=== PATIENT | male | born 1990 | race Caucasian/White ===

== ENCOUNTER 2019-05-30 06:37 | Inpatient (IN) ==
[2019-05-30] MEDS ORDERED: NS 1,000 ML IV ONE (07:09)
[2019-05-30] MEDS ORDERED: NARCAN IV ONE ×2 (07:09→08:37)
--- NOTE | 2019-05-30 07:38 | Diag Imaging Result Doc PS360 ---
EXAM: CHEST-PORTABLE 05/30/2019 HISTORY: ams TECHNIQUE: AP portable upright at 0729 COMMENT: There is no evidence of acute cardiac or pulmonary disease. No previous studies are available for comparison. IMPRESSION: No acute disease. Electronically signed by Kyle Fields 05/30/2019 7:36 AM
[2019-05-30 07:44] LABS: ALLEN TEST NO; BE 1.9 mmoll (-3.0-3.0); BLOOD TYPE ARTERIAL; HCO3-(ACT) 26.3 mmoll (20.0-26.0); METHB 0.9 % (0.0-1.5); MODALITY CANNULA; O2(CT) 22.6 mL/dL (15.0-23.0); O2HB 95.8 % (95.0-99.0); PCO2(98.6) 37 mmHg (35-45); PO2(98.6) 145 mmHg (60-100); SAMPLE BLOOD; SAO2 98.5 % (95.0-100.0); THB 16.6 g/dL (11.5-17.4); pH(98.6) 7.45 (7.35-7.45)
[2019-05-30 08:05] LABS: URINE SOURCE CATH
[2019-05-30 08:15] LABS: BASO# 0.03 X1000 (0.0-0.2); BASO% 0.3 % (0.0-0.8); EOS# 0.14 X1000 (0.0-0.7); EOS% 1.2 % (0.0-10.0); HEMOGLOBIN 15.6 g/dL (14.0-18.0); IMM GRAN# 0.03 X1000 (0.0-0.04); IMM GRAN% 0.3 % (0.0-0.5); LYMPH# 3.08 X1000 (1.2-3.4); MCH 28.5 PG (27-31); MCHC 33.2 g/dL (33-37); MCV 85.9 FL (81-99); MONO# 0.96 X1000 (0.11-0.59); MONO% 8.4 % (1.7-9.3); MPV 9.9 FL (7.4-10.4); NEUT# 7.15 X1000 (1.4-6.5); NEUT% 62.8 % (42.2-75.2); PLT 278 X1000 (130-400); RBC 5.47 XMIL (4.7-6.1); RDW 12.7 % (11.5-14.5); WBC 11.39 X1000 (4.8-10.8)
[2019-05-30 08:17] LABS: BILIRUBIN URINE NEGATIVE (NEGATIVE); BLOOD URINE NEGATIVE (NEGATIVE); COLOR YELLOW; GLUCOSE URINE NEGATIVE (NEGATIVE); KETONE URINE NEGATIVE (NEGATIVE); LEUKOCYTES URINE NEGATIVE (NEGATIVE); NITRITE URINE NEGATIVE (NEGATIVE); PH URINE 6.5; PROTEIN URINE 30 mg/dL (NEGATIVE); TURBIDITY URINE HAZY (CLEAR); UROBILINOGEN URINE 2 mg/dL (NORMAL)
--- NOTE | 2019-05-30 08:17 | Diag Imaging Result Doc PS360 ---
EXAM: CT HEAD W/O CONTRAST 05/30/2019 HISTORY: ams TECHNIQUE: This exam was performed using automated exposure control, adjustment of mA or kV according to patient size, and/or use of iterative reconstruction technique. COMMENT: There is no evidence of mass effect, bleed, or abnormal extra-axial fluid collection. The calvarium is intact. The paranasal sinuses are clear. IMPRESSION: No evidence of acute disease. Electronically signed by Kyle Fields 05/30/2019 8:15 AM
[2019-05-30 08:34] LABS: ACETAMINOPHEN < 1.2 ug/mL (10-30); AGAP 6; ALB/GLOB RATIO 1.3; ALBUMIN 4.4 g/dL (3.5-5.0); ALKALINE PHOSPHATASE 79 U/L (32-122); BUN 13 mg/dL (8-22); CALCIUM 10.2 mg/dL (8.8-10.2); CHLORIDE 98 mmol/L (98-107); COSMO 265; ESTIMATED GFR > 60; GLUCOSE 108 mg/dL (70-104); GOT 31 U/L (10-34); GPT 42 U/L (10-44); MAGNESIUM 1.9 mg/dL (1.5-2.7); POTASSIUM 4.5 mmol/L (3.5-5.1); SODIUM 132 mmol/L (136-145); TCO2 28 mmol/L (25-35); TOTAL BILIRUBIN 0.52 mg/dL (0.20-1.00); TOTAL PROTEIN 7.9 g/dL (6.3-8.3)
[2019-05-30 08:35] LABS: UR EPITHELIAL CELLS <10 /HPF (<10); URINE BACTERIA NEGATIVE /HPF; URINE WBC <10 /HPF (<10)
[2019-05-30 08:36] LABS: URINE CRYSTALS NONE SEEN
--- NOTE | 2019-05-30 08:51 | EKG Report ---
Test Performed on : 05/30/2019 08:41:49 AM Test Reason : DOD Blood Pressure : / mmHG Vent. Rate : 066 BPM Atrial Rate : 066 BPM P-R Int : 146 ms QRS Dur : 092 ms QT Int : 392 ms P-R-T Axes : 030 072 063 degrees QTc Int : 410 ms Normal sinus rhythm. Early repolarization Normal ECG No previous ECGs available Unconfirmed Result
[2019-05-30 09:00] LABS: UR AMPHETAMINES QUAL PRESUMPTIVE POSITIVE (NONE DETECT); UR BARBITUATES QUAL NONE DETECTED (NONE DETECT); UR BENZODIAZEPIN QUAL PRESUMPTIVE POSITIVE (NONE DETECT); UR CANNABINOIDS QUAL NONE DETECTED (NONE DETECT); UR COCAINE QUAL NONE DETECTED (NONE DETECT); UR METHADONE QUAL NONE DETECTED (NONE DETECT); UR OPIATES QUAL NONE DETECTED (NONE DETECT); UR OXYCODONE QUAL NONE DETECTED (NONE DETECT); UR PCP QUAL NONE DETECTED (NONE DETECT)
--- NOTE | 2019-05-30 10:20 | PROVIDER DOCUMENTATION ---
This chart was entered by Heber Nelson Scribe, acting as scribe for Laurent Vieyra MD. [id number] Abuse/Overdose - General Chief Complaint: Overdose Stated Complaint: "PASSED OUT" POLICE BROUGHT HIM Time Seen by Provider: 05/30/19 07:01 Source: patient Unable to obtain history due to:: other (Patient is nonverbal and mumbles incoherently) Allergies/Adverse Reactions: Allergies Allergy/AdvReac Type Severity Reaction Status Date / Time No Known Allergies Allergy Verified 09/26/18 06:39 - History of Present Illness-Drug/Alcohol Nature of Presenting Problem: 29 y/o M presents to the ED via EMS in police custody [place] out [place] with a needle and syringe in his hand. Patient is nonverbal and mumbles incoherently. Patient appears to be drowsy and agitated at times. Unable to obtain full history due to patient current state. This episode of drinking or use began:: just prior to arrival Severity: reports: moderate Review of Systems - Adult - REVIEW OF SYSTEMS - ADULT ROS:: unobtainable per condition (nonverbal, mumbles incoherently) Constitutional: reports: see HPI Past History - Adult - PAST MEDICAL HISTORY-ADULT Review of Records: reports: Nursing Assessment Review, Medications Reviewed Major Childhood Illnesses: reports: denies history Cardiovascular: reports: denies history Respiratory: reports: denies history Gastrointestinal: reports: denies history Obstetrical/Gynecological: reports: denies history Genitourinary: reports: denies history Musculoskeletal: reports: denies history Neurological: reports: denies history Endocrine/Immune: reports: denies history Other Conditions: reports: denies history - IMMUNIZATION STATUS Childhood Immunizations: See Nurse Assessment Flu Vaccine: See Nurse Assessment - FAMILY HISTORY Family History: reviewed, not pertinent Physical Exam-General - PHYSICAL EXAM-ADULT Initial Vital Signs Reviewed: Yes - CONSTITUTIONAL General Appearance: other (somnolent verses agitated) - EYES Eyes: other (wouldn't open eyes) - HEAD, EARS, NOSE, MOUTH & THROAT HENMT: normocephalic/atraumatic, moist mucous membranes - NECK Neck: full range of motion, normal inspection - RESPIRATORY Respiratory: lungs clear, normal breath sounds, no respiratory distress, no accessory muscle use - CARDIOVASCULAR Cardiovascular: no gallop, no murmur, tachycardia - GASTROINTESTINAL (ABDOMEN) Abdominal Exam: non tender, soft - MUSCULOSKELETAL Back Exam: normal inspection Extremity: non-tender, normal capillary refill DTR: bicep (R): 2+, bicep (L): 2+, knee (R): 2+, knee (L): 2+ - SKIN Integumentary: normal color, normal turgor, other (cool to the touch) - NEUROLOGIC Neurologic: machine molder squeeze II-XII nml as tested, grossly normal, other (nonfocal with normal reflexes; withdraws to pain) - PSYCHIATRIC Psych/Mental Status: other (somnolent at times, alternating with agitation at times.) Progress - PLAN OF CARE/RESULTS Progress/Plan/Lab Results: Vital Signs - 8 hr 05/30/19 06:38 05/30/19 06:54 05/30/19 06:56 Temperature 97.7 F 94.7 F L Pulse Rate 168 H 75 75 Respiratory Rate 12 9 L 17 Blood Pressure 99/61 103/68 O2 Sat by Pulse Oximetry 89 L 96 96 05/30/19 06:59 05/30/19 07:00 05/30/19 07:14 Temperature Pulse Rate 76 73 73 Respiratory Rate 15 17 30 H Blood Pressure 95/68 100/73 O2 Sat by Pulse Oximetry 99 97 05/30/19 07:15 05/30/19 07:30 05/30/19 07:45 Temperature Pulse Rate 101 H 78 68 Respiratory Rate 15 17 15 Blood Pressure O2 Sat by Pulse Oximetry 100 99 100 05/30/19 07:51 05/30/19 08:11 05/30/19 08:15 Temperature Pulse Rate 73 65 69 Respiratory Rate 16 18 15 Blood Pressure 101/66 O2 Sat by Pulse Oximetry 100 100 100 Laboratory Results - last 24 hr 05/30/19 05/30/19 05/30/19 07:35 07:45 07:45 WBC RBC Hgb Hct MCV MCH MCHC RDW Std Deviation Plt Count MPV Immature Gran % (Auto) Neut % (Auto) Lymph % (Auto) Gray % (Auto) Eos % (Auto) Baso % (Auto) Immature Gran # (Auto) Neut # (Auto) Lymph # (Auto) Gray # (Auto) Eos # (Auto) Baso # (Auto) Specimen Type ARTERIAL Sample Site R BRACHIAL pH 7.45 pCO2 37 pO2 145 H HCO3 26.3 H Base Excess 1.9 Oxyhemoglobin 95.8 ABG O2 Sat (Calculated) 22.6 ABG O2 Saturation 98.5 ABG Carboxyhemoglobin 1.80 ABG Methemoglobin 0.9 Vinicio Test NO A-a O2 Difference 8.0 Total Hemoglobin 16.6 Lactate 0.60 Liter Flow 2.0 Blood Gas Modality CANNULA FiO2 % 28.0 Sodium Potassium Chloride Carbon Dioxide Anion Gap BUN Creatinine Estimated GFR/1.73 m2 BUN/Creatinine Ratio Glucose POC Glucose Calculated Osmolality Calcium Magnesium Total Bilirubin AST ALT Alkaline Phosphatase Troponin T < 0.010 Total Protein Albumin Globulin Albumin/Globulin Ratio Plasma Lactate Urine Source Urine Color Urine Turbidity Urine pH Ur Specific [place] Urine Protein Ur Glucose (Stick) Ur Ketones (Stick) Urine Blood Urine Nitrite Urine Bilirubin Urobilinogen Dipstick Urine Leukocytes Urine WBC (Auto) Urine RBC (Auto) U Epithel Cells (Auto) Urine Bacteria (Auto) Urine Crystals Small Round Cells Urine Casts Urine Yeast-like Cells Urine Opiates Screen Ur Oxycodone Screen Ur Methadone, Qual Acetaminophen Ur Barbiturates Screen Ur Phencyclidine Scrn Ur Amphetamines Screen U Benzodiazepines Scrn Urine Cocaine Screen U Cannabinoids Screen Plasma/Serum Ethyl Alc 05/30/19 05/30/19 05/30/19 07:45 07:45 07:50 WBC 11.39 H RBC 5.47 Hgb 15.6 Hct 47.0 MCV 85.9 MCH 28.5 MCHC 33.2 RDW Std Deviation 12.7 Plt Count 278 MPV 9.9 Immature Gran % (Auto) 0.3 Neut % (Auto) 62.8 Lymph % (Auto) 27.0 Gray % (Auto) 8.4 Eos % (Auto) 1.2 Baso % (Auto) 0.3 Immature Gran # (Auto) 0.03 Neut # (Auto) 7.15 H Lymph # (Auto) 3.08 Gray # (Auto) 0.96 H Eos # (Auto) 0.14 Baso # (Auto) 0.03 Specimen Type Sample Site pH pCO2 pO2 HCO3 Base Excess Oxyhemoglobin ABG O2 Sat (Calculated) ABG O2 Saturation ABG Carboxyhemoglobin ABG Methemoglobin Vinicio Test A-a O2 Difference Total Hemoglobin Lactate Liter Flow Blood Gas Modality FiO2 % Sodium 132 L Potassium 4.5 Chloride 98 Carbon Dioxide 28 Anion Gap 6 BUN 13 Creatinine 1.0 Estimated GFR/1.73 m2 > 60 BUN/Creatinine Ratio 13 Glucose 108 H POC Glucose Calculated Osmolality 265 Calcium 10.2 Magnesium 1.9 Total Bilirubin 0.52 AST 31 ALT 42 Alkaline Phosphatase 79 Troponin T Total Protein 7.9 Albumin 4.4 Globulin 3.5 Albumin/Globulin Ratio 1.3 Plasma Lactate Urine Source CATH Urine Color YELLOW Urine Turbidity HAZY Urine pH 6.5 Ur Specific [place] 1.030 Urine Protein 30 A Ur Glucose (Stick) NEGATIVE Ur Ketones (Stick) NEGATIVE Urine Blood NEGATIVE Urine Nitrite NEGATIVE Urine Bilirubin NEGATIVE Urobilinogen Dipstick 2 A Urine Leukocytes NEGATIVE Urine WBC (Auto) <10 Urine RBC (Auto) 10-20 A U Epithel Cells (Auto) <10 Urine Bacteria (Auto) NEGATIVE Urine Crystals NONE SEEN Small Round Cells Not Reportable Urine Casts Not Reportable Urine Yeast-like Cells Not Reportable Urine Opiates Screen Ur Oxycodone Screen Ur Methadone, Qual Acetaminophen < 1.2 L Ur Barbiturates Screen Ur Phencyclidine Scrn Ur Amphetamines Screen U Benzodiazepines Scrn Urine Cocaine Screen U Cannabinoids Screen Plasma/Serum Ethyl Alc 05/30/19 05/30/19 05/30/19 08:30 08:52 09:15 WBC RBC Hgb Hct MCV MCH MCHC RDW Std Deviation Plt Count MPV Immature Gran % (Auto) Neut % (Auto) Lymph % (Auto) Gray % (Auto) Eos % (Auto) Baso % (Auto) Immature Gran # (Auto) Neut # (Auto) Lymph # (Auto) Gray # (Auto) Eos # (Auto) Baso # (Auto) Specimen Type Sample Site pH pCO2 pO2 HCO3 Base Excess Oxyhemoglobin ABG O2 Sat (Calculated) ABG O2 Saturation ABG Carboxyhemoglobin ABG Methemoglobin Vinicio Test A-a O2 Difference Total Hemoglobin Lactate Liter Flow Blood Gas Modality FiO2 % Sodium Potassium Chloride Carbon Dioxide Anion Gap BUN Creatinine Estimated GFR/1.73 m2 BUN/Creatinine Ratio Glucose POC Glucose 96 Calculated Osmolality Calcium Magnesium Total Bilirubin AST ALT Alkaline Phosphatase Troponin T Total Protein Albumin Globulin Albumin/Globulin Ratio Plasma Lactate 0.7 Urine Source Urine Color Urine Turbidity Urine pH Ur Specific [place] Urine Protein Ur Glucose (Stick) Ur Ketones (Stick) Urine Blood Urine Nitrite Urine Bilirubin Urobilinogen Dipstick Urine Leukocytes Urine WBC (Auto) Urine RBC (Auto) U Epithel Cells (Auto) Urine Bacteria (Auto) Urine Crystals Small Round Cells Urine Casts Urine Yeast-like Cells Urine Opiates Screen NONE DETECTED Ur Oxycodone Screen NONE DETECTED Ur Methadone, Qual NONE DETECTED Acetaminophen Ur Barbiturates Screen NONE DETECTED Ur Phencyclidine Scrn NONE DETECTED Ur Amphetamines Screen PRESUMPTIVE POSITIVE A U Benzodiazepines Scrn PRESUMPTIVE POSITIVE A Urine Cocaine Screen NONE DETECTED U Cannabinoids Screen NONE DETECTED Plasma/Serum Ethyl Alc Orders Category Date Time Status Cardiac Monitoring DIRECTED Care 05/30/19 06:54 Active Finger Stick Blood Sugar (ED) DIRECTED Care 05/30/19 07:11 Active Flor Cath Insertion ORDERED Care 05/30/19 08:16 Active Saline Loc NOW Care 05/30/19 06:54 Active CHEST-PORTABLE [RAD] Stat Exams 05/30/19 07:[address] HEAD W/O CONTRAST [CT] Stat Exams 05/30/19 07:10 Completed ABG [RESP] Routine Lab 05/30/19 07:35 Completed ACETAMINOPHEN [TDM] Stat Lab 05/30/19 07:45 Completed ALCOHOL BLOOD Stat Lab 05/30/19 07:45 Completed BLOOD CULTURE [BLDCUL] Stat Lab 05/30/19 09:15 Ordered CBC WITH ELECTRONIC DIFF [HEME] Stat Lab 05/30/19 07:45 Completed COMPREHENSIVE METABOLIC PANEL [CHEM] Stat Lab 05/30/19 07:45 Completed LACTATE, PLASMA [CHEM] Stat Lab 05/30/19 09:15 Completed MAGNESIUM [CHEM] Stat Lab 05/30/19 07:45 Completed TROPONIN T Stat Lab 05/30/19 07:45 Completed URINALYSIS W/POSS RFLX CULT [URINALYSIS] Stat Lab 05/30/19 07:50 Completed URINE DRUG SCREEN Stat Lab 05/30/19 08:30 Completed URINE MANUAL MICROSCOPIC [URINALYSIS] Stat Lab 05/30/19 07:50 Completed 0.9% Sodium Chloride Inj [Ns] 1,000 ml Med 05/30/19 07:09 Discontinued IV 999 mls/hr Naloxone [Narcan] Med 05/30/19 07:09 Discontinued 0.4 mg IV NOW ONE Naloxone [Narcan] Med 05/30/19 08:37 Discontinued 2 mg IV NOW ONE EKG [EKG] Stat Ther 05/30/19 06:55 Draft Result Diagrams: 05/30/19 07:45 05/30/19 07:45 - REASSESSMENT Reassessment #1 Time Reassessed: 10:17 Status: improving (Place on Navid Hugger for hypothermia. Given Narcan IV x 2, placed on oxygen. Given also IVF bolus. Patient still somnolent) - EKG 1 Time of EKG reading by physician:: 10:14 EKG Read and Signed by:: Laurent Vieyra EKG Interpretation (*Must complete 3 of following elements*): Normal Rate: 66 Rhythm: normal sinus rhythm [place]: normal ST Wave: normal Comments: early repolarization - XRAY 1 XRAY Study: Chest Impression: See EMR Report (EXAM: CHEST-PORTABLE 05/30/2019 HISTORY: ams TECHNIQUE: AP portable upright at 0729 COMMENT: There is no evidence of acute cardiac or pulmonary disease. No previous studies are available for comparison. IMPRESSION: No acute disease. Electronically signed by Kyle Fields 1 07/30/2018 7:36 AM 05/30/19 0736 Interpreting Physician: Kyle Fields MD Dictated Date/Time: 05/30/19 0735 cc: Laurent Vieyra MD; None,PCP) - CT/MRI 1 CT Study: Head Impression: See EMR Report (EXAM: CT HEAD W/O CONTRAST 05/30/2019 HISTORY: ams TECHNIQUE: This exam was performed using automated exposure control, adjustment of mA or kV according to patient size, and/or use of iterative reconstruction technique. COMMENT: There is no evidence of mass effect, bleed, or abnormal extra-axial fluid collection. The calvarium is intact. The paranasal sinuses are clear. IMPRESSION: No evidence of acute disease. Electronically signed by Kyle Fields 05/30/2019 8:15 AM 05/30/19 0815 Interpreting Physician: Kyle Fields MD Dictated Date/Time: 05/30/19 0810 cc: Laurent Vieyra MD; None,PCP) - CONSULTS/PCP/HOSPITALIST Notification #1 *Consult/PCP/Hospitalist*: Hospitalist Time Discussed: 10:13 (Admit to [facility]) Consult Disposition: Admit Departure - Departure Date of Disposition Decision: 05/30/19 Time of Disposition Decision: 10:14 DIAGNOSIS: Methamphetamine abuse, Altered mental status associated with intoxication Overdose Qualifiers: Encounter type: initial encounter Injury intent: undetermined intent Qualified Code(s): T50.904A - Poisoning by unspecified drugs, medicaments and biological substances, undetermined, initial encounter Benzodiazepine (tranquilizer) overdose Qualifiers: Encounter type: initial encounter Injury intent: undetermined intent Qualified Code(s): T42.4X4A - Poisoning by benzodiazepines, undetermined, initial encounter Hypothermia Qualifiers: Encounter type: initial encounter Qualified Code(s): T68.XXXA - Hypothermia, initial encounter Disposition: ADMITTED INPATIENT 09 Certified Medical Emergency: Emergent Condition: Fair Referrals and Follow-Ups: None,PCP [Primary Care Provider] - - Critical Care Note This patient required my direct & personal management of CC.: Yes Total Time (mins): 35 Critical Care Statement: This patient required my direct personal management to treat or rule out processes, the absence of which, could potentiallly result in sudden, clinically significant life or limb threatening deterioration. Attestation - Physician/ CHERIE Attestation Patient care was provided by Advanced Practice Provider:: No The physician spent face to face time with patient:: Yes Advanced Practice Provider documentation review:: Supervising physician onsite and consulted in the evaluation and care of this patient. The physician did have a face to face encounter with the patient. This chart was documented by the indicated scribe, (Heber Nelson Scribe) and accurately reflects the services I performed and decisions made by me, Laurent Vieyra MD, as attested by the provider's signature.
[2019-05-30] MEDS ORDERED: TYLENOL PO PRN (10:47)
[2019-05-30] MEDS ORDERED: ZOFRAN IV PRN (10:47)
[2019-05-30] MEDS: NS 1,000 ML IV SCH ×2 (11:50→21:25)
--- NOTE | 2019-05-30 14:17 | HISTORY AND PHYSICAL ---
PRIMARY CARE PROVIDER: No one. CHIEF COMPLAINT: Was found unresponsive outside with a loaded IV drug needle and syringe. HISTORY OF PRESENT ILLNESS: Mr. Cody Perez is a 29-year-old, male with an unknown medical history as he is not responsive enough to give a history. He was found by police and was taken back to police custody as he [place] passed out [place] the post office with a needle and loaded syringe in his hand. He is essentially nonverbal. He mumbles incoherently. We are just unable to get any kind of information from him. He was cold with a temperature of 94 degrees, has been placed on a Navid Hugger warming blanket. Laboratory data reveals a white count of 11,000. Normal lactate. No obvious signs of infection. His alcohol level is 0 but he is positive for amphetamines and benzodiazepines in the blood. Head CT negative. Chest x-ray negative. EKG normal. He is going to be transferred to the ICU for monitoring and allow him to wake up. PAST MEDICAL HISTORY: Unable to obtain. PAST SURGICAL HISTORY: Unable to obtain. SOCIAL HISTORY: Unable to obtain. FAMILY HISTORY: Unable to obtain. ALLERGIES: No known drug allergies. HOME MEDICATIONS: None. REVIEW OF SYSTEMS: Unable to obtain. PHYSICAL EXAMINATION: VITAL SIGNS: Temperature 94.6 degrees, heart rate 82, respiratory rate 14, blood pressure 99/61, O2 saturation 99% on room air. GENERAL: Mr. Cody Perez is a 29-year-old, male. He is currently sedated from self- medicating with benzodiazepines and amphetamines. HEENT: Atraumatic, normocephalic. Pupils are equal and reactive, about 3 mm on both sides. Mucous membranes are dry. NECK: Trachea midline. CARDIOVASCULAR: S1, S2. Regular rate and rhythm. No rubs, gallops, murmurs. No lower extremity edema. There are +2 dorsalis and radial pulses. Negative JVD or carotid bruits. PULMONARY: Clear to auscultate bilateral breath sounds. No accessory muscle use or work of breathing noted. GI: Soft, nontender, nondistended. Positive bowel sounds x4. EXTREMITIES: He moves all extremities spontaneously but not to command. Unable to assess for strength or range of motion. NEUROLOGIC: He is obtunded. He does not wake up enough to follow any commands. He keeps his eyes closed and has spontaneous movements in the bed. SKIN: Warm, dry, intact. LABORATORY DATA: White blood cells 11,000, hemoglobin 15, hematocrit 47, platelet count 278,000. ABGs on room air, pH of 7.45, pCO2 of 37, PO2 of 145, bicarb 26, base excess 1.9, saturation 95%, lactate 0.6. Sodium 132, potassium 4.5, BUN 13, creatinine is 1.0, glucose 108, calcium 10, magnesium 1.9. Bilirubin 0.52, AST 31, ALT 42. Troponin less than 0.01. Albumin 4.4, serum lactate 0.7. Urinalysis, 30 protein, 2 urobilinogen, 10 to 20 of red blood cells, negative bacteria. Less than 1.2 acetaminophen. Amphetamines positive, benzodiazepines positive. Alcohol 0. IMAGING: Head CT negative for acute findings. Chest x-ray negative for acute findings. EKG, normal sinus rhythm, rate 66, QTc 410. ASSESSMENT AND PLAN: 1. Overdose on benzodiazepines and amphetamines that are both positive in his urine drug screen. Currently obtunded essentially from this. He is going to be moved to the intensive care unit for close observation. 2. Deep venous thrombosis prophylaxis. Sequential compression devices. Dictated by NATHAN Ann for Jesús Stratton MD Addendum: Patient seen and examined by myself. Agree with NATHAN note. It reflects my assessment and plan. Patient is being admitted to hospital for for toxic encephalopathy secondary to drug abuse. Will monitor patient closely in ICU. Will provide IV fluids. If tomorrow patient is awake then he can be discharged. cc: NATHAN Ann MD [facility]
[2019-05-31] MEDS: NS 1,000 ML IV SCH (06:22)
[2019-05-31 07:25] LABS: BASO# 0.01 X1000 (0.0-0.2); BASO% 0.1 % (0.0-0.8); EOS# 0.14 X1000 (0.0-0.7); EOS% 1.8 % (0.0-10.0); HEMATOCRIT 44.9 % (42.0-52.0); HEMOGLOBIN 14.8 g/dL (14.0-18.0); IMM GRAN# 0.02 X1000 (0.0-0.04); IMM GRAN% 0.3 % (0.0-0.5); LYMPH% 29.1 % (20.5-51.1); MCH 28.9 PG (27-31); MCV 87.7 FL (81-99); MONO# 0.54 X1000 (0.11-0.59); MONO% 6.8 % (1.7-9.3); MPV 10.2 FL (7.4-10.4); NEUT% 61.9 % (42.2-75.2); PLT 234 X1000 (130-400); RBC 5.12 XMIL (4.7-6.1); RDW 12.9 % (11.5-14.5); WBC 7.91 X1000 (4.8-10.8)
[2019-05-31 07:48] LABS: AGAP 12; ALB/GLOB RATIO 1.2; ALBUMIN 3.6 g/dL (3.5-5.0); ALKALINE PHOSPHATASE 69 U/L (32-122); BUN 10 mg/dL (8-22); CHLORIDE 103 mmol/L (98-107); COSMO 275; CREATININE 0.9 mg/dL (0.7-1.2); ESTIMATED GFR > 60; GLUCOSE 76 mg/dL (70-104); GOT 29 U/L (10-34); GPT 41 U/L (10-44); MAGNESIUM 1.9 mg/dL (1.5-2.7); SODIUM 139 mmol/L (136-145); TCO2 24 mmol/L (25-35); TOTAL BILIRUBIN 0.46 mg/dL (0.20-1.00); TOTAL PROTEIN 6.6 g/dL (6.3-8.3)
[2019-05-31 09:33] VITALS: BP 106/54
--- NOTE | 2019-06-01 05:53 | DISCHARGE SUMMARY ---
ADMISSION DATE: 05/30/2019 DISCHARGE DATE: 05/31/2019 DISCHARGE DIAGNOSES: 1. Toxic encephalopathy secondary to drug overdose resolved. 2. Polysubstance abuse. PROCEDURES: 1. Chest x-ray done on admission and showed no acute disease. 2. Head CT done on admission showed no evidence of acute disease. HOSPITAL COURSE: In brief, this 29-year-old male with unremarkable past medical history, who was found by police and was taken into police custody, and he passed out. He was brought to the emergency department. ER workup reveals that this patient had used methamphetamine's and benzodiazepines. He was admitted to the intensive care unit for better monitoring. So far, the CT of the head was unremarkable. His temperature was very low so he was placed on Navid Hugger warming blanket. During the next few hours, he started waking up. He was eating okay. Also, we have checked labs day of discharge, and he was okay. He was strongly advised to stop using drugs. Patient acknowledged understanding. Patient is going to be discharged in stable condition. DISCHARGE PHYSICAL EXAMINATION: Vital Signs: Temperature 98.1 degrees, heart rate 76, respiratory rate 16, blood pressure 108/69, O2 saturation 99% on room air. General: This is a 29- year-old male lying in bed in no acute distress. Cardiovascular: S1, S2 heard. No murmurs, gallops, or rubs. Regular rate and rhythm Respiratory: Clear bilaterally to auscultation. No work of breathing or using accessory muscles. Abdomen: Soft, nontender to palpation. Bowel sounds present. No organomegaly. Extremities: No clubbing, cyanosis, or edema. Peripheral pulses present in both legs. Neurological: The patient is alert and oriented x3. Moves 4 extremities. DISCHARGE DISPOSITION: Home to self-care. MEDICATIONS: None. cc: Jesús Stratton MD
== END 2019-05-31 10:00 | disposition home or self-care (01) | DRG 917 ==
LOC: ED 06:37 → ICU 12:44
PROVIDERS: ATTEND Internal Medicine